=== PATIENT | male | born 1995 | race Caucasian/White ===

== ENCOUNTER 2022-08-03 08:36 | Emergency (ER) | payer OTHER, SELFPAY ==
--- NOTE | ~2022-08-03 | XR_ITS ---
EXAMINATION: XR abdomen obstructive series DATE: 08/03/2022 09:04 INDICATION: Foreign body ingestion. TECHNIQUE: Upright and supine views of the abdomen on 3 radiographs were obtained. COMPARISON: None. FINDINGS: There are no dilated loops of bowel. There is a moderate volume of stool in the colon. Ther e is no radiopaque foreign body. No free intraperitoneal gas. IMPRESSION: 1. No radiopaque foreign body. 2. Normal bowel gas pattern. Reviewed, dictated and finalized at location A.
--- NOTE | ~2022-08-03 | XR_ITS ---
EXAMINATION: XR chest 2V, XR soft tissue neck DATE: 08/03/2022 09:59 INDICATION: Assess for swallowed soda can tab TECHNIQUE: 1. PA and lateral views of the chest were obtained. 2. AP and lateral views of the soft tissues of the neck were obtained. COMPARISON: Chest radiograph dated 08/03/2007 FINDINGS: Neck: Airway appears widely patent. No radiopaque foreign bodies. Prevertebral soft tissues are unremarkabl e. Normal alignment of the cervical spine with normal vertebral body and disc heights . Chest : The lungs remain clear with no focal airspace opacities, pulmonary edema, pleural effusion or pneumot horax. The cardiomediastinal silhouette is normal. Visualized bones and soft tissues are unremarkable . No radiopaque foreign bodies identified. IMPRESSION: 1. Normal radiographs of the neck and chest. No radiopaque foreign bodies identified. Reviewed, dictated and finalized at location A. IMPRESSION: 1. Normal radiographs of the neck and chest. No radiopaque foreign bodies ident ified.
[2022-08-03 08:37] VITALS: BP 138/77; PULSE 78; RESP 18; TEMP 36.1; O2SAT 99
--- NOTE | 2022-08-03 10:43 | ED.GENADULT ---
HPI - General Adult General Chief complaint: Skin/Abscess/Foreign Body Stated complaint: swallowed soda tab yesterday Time Seen by Provider: 08/03/22 08:41 History of Present Illness HPI narrative: Patient is a 27-year-old male who presents ER due to concerns of ingesting a energy drink soda tab. He reports his jokingly put it in his beverage and he was aware of it but was very thirsty and took a big golf and accidentally swallowed it. Today he started having some increased discomfort in his central chest and is concerned that it may be stuck reports after ingesting it he was still able to eat a foot long [employer] sandwich. He has no nausea or vomiting. No diarrhea. He has not seen the tab in his feces. Patient has some increased pain with swallowing. Related Data Allergies Allergy/AdvReac Type Severity Reaction Status Date / Time No Known Allergies Allergy Verified 08/03/22 10:47 Review of Systems Constitutional: Constitutional: Denies chills and Denies fever(s) ENT: Denies dysphagia, Denies nasal congestion and Denies sore throat Cardiovascular: Cardiovascular: Denies chest pain, Denies rapid heart rate and Denies radiating jaw, neck or arm pain Respiratory: Respiratory: Denies cough, Denies dyspnea and Denies wheezing Gastrointestinal: Gastrointestinal: Denies abdominal pain, Denies nausea and Denies vomiting PMF Past Medical History Medical History (Updated 08/03/22 @ 10:47 by Evans Ace MD) Healthy adult male Surgical History Surgical History (Updated 01/30/20 @ 10:[address] [facility]) [place] teeth extracted Family History Family History (Updated 11/25/15 @ 15:14 by DOCTOR UNKNOWN) Father Patient's father is in good health Mother Family history of cardiac disorder, Onset Age: 35 Social History Social History Second hand tobacco smoke exposure: No Alcohol intake: current Exam Narrative: GENERAL: Well-appearing, well-nourished, and in no acute distress. HEAD: Normocephalic, atraumatic. ENT: Mucous membranes moist. Normal-appearing posterior oropharynx. CHEST: Clear to auscultation. No respiratory distress. HEART: Regular rate and rhythm. Normal peripheral pulses. ABDOMEN: Soft, nontender, nondistended. EXTREMITIES: Normal range of motion. No edema. NEURO: Alert and oriented x3. PSYCH: Normal mood and affect. Course Course Emergency Course: Patient resting comfortably. No foreign body evaluation. Symptoms improved with viscous lidocaine. Discharge home. Suspect minor irritation/abrasion of the esophagus related to swallowing the soda tab. Vital Signs Vital signs: Vital Signs Temperature 97.0 F L 08/03/22 08:37 Pulse Rate 78 08/03/22 08:37 Respiratory Rate 18 08/03/22 08:37 Blood Pressure 138/77 08/03/22 08:37 Pulse Oximetry 99 08/03/22 08:37 Oxygen Delivery Room Air 08/03/22 08:37 Temperature 97.0 F L 08/03/22 08:37 Pulse Rate 78 08/03/22 08:37 Respiratory Rate 18 08/03/22 08:37 Blood Pressure 138/77 08/03/22 08:37 Pulse Oximetry 99 08/03/22 08:37 Oxygen Delivery Room Air 08/03/22 08:37 Medical Decision Making Vital Signs Vital Signs: Vital Signs Temperature 97.0 F L 08/03/22 08:37 Pulse Rate 78 08/03/22 08:37 Respiratory Rate 18 08/03/22 08:37 Blood Pressure 138/77 08/03/22 08:37 Pulse Oximetry 99 08/03/22 08:37 Oxygen Delivery Room Air 08/03/22 08:37 Temperature 97.0 F L 08/03/22 08:37 Pulse Rate 78 08/03/22 08:37 Respiratory Rate 18 08/03/22 08:37 Blood Pressure 138/77 08/03/22 08:37 Pulse Oximetry 99 08/03/22 08:37 Oxygen Delivery Room Air 08/03/22 08:37 Discharge Plan Discharge Clinical Impression: Pain on swallowing Patient Disposition: Home, Self-Care Condition: Stable Additional Instructions: It is felt you have a minor scratch of your esophagus that is causing discomfort with swallowing. There is no evidence of retained fore
[2022-08-03] MEDS: LIDOCAINE HCL 2% VISC SOLN 15 ML UDC PO (10:51)
[2022-08-03 11:10] VITALS: BP 115/70; PULSE 70; RESP 18; O2SAT 100
== END 2022-08-03 11:10 | disposition home or self-care (01) ==
PROVIDERS: Emergency Provider Emergency Medicine; PCP Physician Assistant
DX: R13.10 Dysphagia, unspecified (principal)
CPT/HCPCS: 70360; 71046; 74019; 99284